=== PATIENT | female | born 1950 | race Hispanic/Latino ===

== ENCOUNTER 2017-10-04 09:20 | Emergency (ER) | payer MEDICARE, BC ==
[2017-10-04 09:20] VITALS: BMI 24.1
--- NOTE | 2017-10-04 09:54 | ED PDOC ---
Arrival/HPI <Baltazar Pedraza P - Last Filed: 10/04/17 15:51> - General Historian: Patient - History of Present Illness Time/Duration: Prior to Arrival Symptom Onset: Gradual Symptom Course: Improving Quality: Other ("vibrating") Context: Exertion <Logan Pendleton - Last Filed: 10/04/17 17:55> - General Chief Complaint: Chest Pain Time Seen by Provider: 10/04/17 09:24 - History of Present Illness Narrative History of Present Illness (Text): 10/04/17 09:48 This is a 67 yo female with past medical hx of Tako Tsubo cardiomyopathy, DVT, Crohn's disease, NSTEMI presenting with chief complaint of chest pain. It is substernal in location with radiation to left shoulder. She reports it feels similar to time in 2014 when she was dx with Tako Tsubo. She says it started about 530 am when she was walking around her house doing laundry and other chores. She also had some tea with caffeine and thought it could be some reflux so she took zantac. The pain is constant, 6/10. It feels a little better now. It is not reproducible to palpation. She also measured her BP at home and saw it was very elevated so she took her toprol. Denies cough, fevers, chills, vomiting, diarrhea, syncope, other systemic sx. PMD is Dr. Ziegler in [facility]. PMH: Tako Tsubo, HTN, HLD, Crohn's, DVT, NSTEMI PSH: parathyroidectomy, bowel resection relating to Crohn's Allergies: NKDA FH: stroke, heart disease in family Home meds: zetia, spironolactone, toprol, warfarin, magnesium, folic acid, lipitor; pt was previously on remicade for Crohn's (stopped 2013) Social hx: former smoker, quit in 1991. social drinker. denies drug use. Born in . lives at home with 10/04/17 10:00 10/04/17 10:16 (Logan Pendleton) Past Medical History - Provider Review Nursing Documentation Reviewed: Yes - Infectious Disease Hx of Infectious Diseases: None - Tetanus Immunization Tetanus Immunization: Unknown - Reproductive Menopause: Yes - Cardiac Hx Cardiac Disorders: Yes Hx Hypertension: Yes Other/Comment: irregular EKG - Hematological/Oncological Other/Comment: blood clots - Musculoskeletal/Rheumatological Hx Falls: No - Gastrointestinal Hx Crohn's Disease: Yes - Psychiatric Hx Substance Use: No - Surgical History Hx Thyroidectomy: Yes (partial) Other/Comment: Bowel resection - Anesthesia Hx Anesthesia: Yes Hx Anesthesia Reactions: No <Logan Pendleton - Last Filed: 10/04/17 17:55> Family/Social History - Physician Review Nursing Documentation Reviewed: Yes Family/Social History: CVA/TIA, CAD/MA Smoking Status: Former Smoker Hx Alcohol Use: Yes Hx Substance Use: No Hx Substance Use Treatment: No <Logan Pendleton - Last Filed: 10/04/17 17:55> Allergies/Home Meds <Baltazar Pedraza - Last Filed: 10/04/17 15:51> <Logan Pendleton - Last Filed: 10/04/17 17:55> Allergies/Adverse Reactions: Allergies No Known Allergies Allergy (Verified 10/04/17 10:04) Home Medications: Home Meds Medication Instructions Recorded Confirmed Atorvastatin Calcium [Lipitor] 60 mg PO DAILY 09/23/15 10/04/17 Ezetimibe [Zetia] 1 tab PO DAILY 09/23/15 10/04/17 Metoprolol Succinate [Toprol XL] 1 tab PO DAILY 09/23/15 10/04/17 Spironolactone [Aldactone] 1 tab PO DAILY 09/23/15 10/04/17 Warfarin [Coumadin] 2.5 mg PO DAILY 09/23/15 10/04/17 Review of Systems - Review of Systems Constitutional: absent: Weight Change, Fevers Eyes: absent: Vision Changes, Photophobia ENT: absent: Hearing Changes, Tinnitus Respiratory: absent: Cough Cardiovascular: Chest Pain. absent: Palpitations Gastrointestinal: absent: Abdominal Pain, Stool Changes Genitourinary Female: absent: Dysuria, Frequency Musculoskeletal: absent: Arthralgias, Back Pain Skin: absent: Rash, Pruritis Neurological: absent: Headache, Dizziness Endocrine: absent: Diaphoresis, Polyuria Hemo/Lymphatic: absent: Adenopathy, Easy Bleeding Psychiatric: absent: Anxiety, Depression <Logan Pendleton - Last Filed: 10/04/17 17:55> Physical Exam Vital Signs Reviewed: Yes Mental Status: Positive for: Alert and Oriented X 3 - Systems Exam Head: Present: Atraumatic, Normocephalic Pupils: Present: PERRL Extroacular Muscles: Present: EOMI Neck: Present: Normal Range of Motion. No: JVD Respiratory/Chest: Present: Rales (minimal crackles on the right ). No: Clear to Auscultation, Respiratory Distress Cardiovascular: Present: Normal S1, S2 Abdomen: Present: Normal Bowel Sounds. No: Tenderness, Distention, Peritoneal Signs Upper Extremity: Present: Normal Inspection. No: Cyanosis, Edema Lower Extremity: Present: Normal Inspection. No: Edema Neurological: Present: CN II-XII Intact, Speech Normal Skin: Present: Warm, Dry Psychiatric: Present: Alert, Oriented x 3, Normal Insight, Normal Concentration <Logan Pendleton - Last Filed: 10/04/17 17:55> Vital Signs Temp Pulse Resp BP Pulse Ox 10/04/17 15:53 68 18 163/84 H 98 10/04/17 13:00 62 18 161/88 H 100 10/04/17 11:20 98.5 F 58 L 19 160/88 H 100 10/04/17 09:31 97.7 F 62 19 185/94 H 100 Medical Decision Making <Baltazar Pedraza - Last Filed: 10/04/17 15:51> <Logan Pendleton - Last Filed: 10/04/17 17:55> ED Course and Treatment: ecg- nsr 68, twi in V1-4 w tw abn in V5-6 disc results w pt- she wishes for transfer to [place] as her card is there 12pm disc w Dr Ziegler, the pts restaurant manager at [facility]- accepts transfer (Baltazar Pedraza) - Lab Interpretations Lab Results: 10/04/17 10:40 10/04/17 10:40 Lab Results 10/04/17 10:40: Sodium 141, Potassium 4.6, Chloride 108 H, Carbon Dioxide 22, Anion Gap 16, BUN 16, Creatinine 1.0, Est GFR ( Amer) > 60, Est GFR (Non- Af Amer) 55, Random Glucose 131 H, Calcium 9.9, Total Bilirubin 1.3, AST 48 H, ALT 42, Alkaline Phosphatase 133 H, Troponin I 0.36 H* D, Total Protein 7.0, Albumin 4.1, Globulin 2.9, Albumin/Globulin Ratio 1.4 10/04/17 10:40: WBC 6.6, RBC 4.41, Hgb 13.9, Hct 42.2, MCV 95.7, MCH 31.5, MCHC 32.9, RDW 13.9, Plt Count 226, MPV 9.9, Gran % 72.0 H, Lymph % (Auto) 18.6 L, [place] % (Auto) 6.9 H, Eos % (Auto) 2.0, Baso % (Auto) 0.5, Gran # 4.77, Lymph # 1.2, [place] # 0.5, Eos # 0.1, Baso # 0.03 10/04/17 09:58: PT 19.0 H, INR 1.71 H, D-Dimer, Quantitative < 200 - RAD Interpretation Radiology Orders: 10/04/17 09:41 CHEST PORTABLE [RAD] Stat - Medication Orders Current Medication Orders: Discontinued Medications Aspirin (Aspirin Chewable) 324 mg PO STAT STA Stop: 10/04/17 09:43 Last Admin: 10/04/17 09:56 Dose: 324 mg Disposition/Present on Arrival - Present on Arrival History of DVT/PE: Yes - Disposition Have Diagnosis and Disposition been Completed?: Yes Disposition Time: 15:52 <Baltazar Pedraza - Last Filed: 10/04/17 15:51> - Present on Arrival Any Indicators Present on Arrival: Yes History of DVT/PE: Yes History of Uncontrolled Diabetes: No Urinary Catheter: No History of Decub. Ulcer: No History Surgical Site Infection Following: None - Disposition Have Diagnosis and Disposition been Completed?: Yes Patient Plan: Transfer To <Logan Pendleton - Last Filed: 10/04/17 17:55> - Disposition Diagnosis: NSTEMI (non-ST elevated myocardial infarction) Disposition: Trans to Other Acute Care Hosp Condition: STABLE Forms: Sincerely (Divehi)
--- NOTE | 2017-10-04 10:14 | RAD ---
HISTORY: cp COMPARISON: 09/23/2015 FINDINGS: LUNGS: No infiltrate. 12 mm lobulated nodule mid right lung. Recommend further evaluation with computed tomography of the chest. No other pulmonary mass identified. PLEURA: No significant pleural effusion identified, no pneumothorax apparent. CARDIOVASCULAR: Normal. OSSEOUS STRUCTURES: No significant abnormalities. VISUALIZED UPPER ABDOMEN: Normal. OTHER FINDINGS: None. IMPRESSION: 12 mm lobulated nodular opacity in mid right lung. Recommend further evaluation with computed tomography. No acute infiltrate.
[2017-10-04 10:25] LABS: INR 1.71 (0.93-1.08)
[2017-10-04 10:29] LABS: D DIMER < 200 ng/mL (0-243)
[2017-10-04 10:59] LABS: BASO # 0.03 K/mm3 (0.0-2.0); BASO % 0.5 % (0.0-3.0); EOS # 0.1 (0.0-0.7); GRAN # 4.77 (1.4-6.5); HEMATOCRIT 42.2 % (36.0-48.0); LYMPH # 1.2 (1.2-3.4); LYMPH % 18.6 % (22.0-35.0); MEAN CELL VOLUME 95.7 fl (80.0-105.0); MEAN CORPUSCULAR HEMOGLOBIN 31.5 pg (25.0-35.0); MEAN CORPUSCULAR HGB CONC 32.9 g/dl (31.0-37.0); MEAN PLATELET VOLUME 9.9 fl (7.0-11.0); MONO # 0.5 (0.1-0.6); MONO % 6.9 % (1.0-6.0); RED CELL DISTRIBUTION WIDTH 13.9 % (11.5-14.5); WHITE BLOOD COUNT 6.6 10^3/ul (4.5-11.0)
[2017-10-04 11:16] LABS: ALB/GLOB RATIO 1.4 (1.1-1.8); ALKALINE PHOSPHATASE 133 U/L (38-126); ALT/SGPT 42 U/L (7-56); AST/SGOT 48 U/L (14-36); BILIRUBIN,TOTAL 1.3 mg/dL (0.2-1.3); BLOOD UREA NITROGEN 16 mg/dL (7-21); CALCIUM 9.9 mg/dL (8.4-10.5); CARBON DIOXIDE 22 mmol/L (21-33); CHLORIDE 108 mmol/L (98-107); GFR AFRICAN-AMERICAN > 60; GLUCOSE,RANDOM 131 mg/dL (70-110); POTASSIUM 4.6 mmol/L (3.6-5.0); SODIUM 141 mmol/L (132-148)
[2017-10-04 11:44] LABS: TROPONIN I 0.36 ng/mL
[2017-10-04 11:58] VITALS: TEMP 98.5
--- NOTE | 2017-10-04 12:33 | CARD ---
APPROVED REPORT EKG Measurement Heart [id number] <Conclusion> Normal sinus rhythm ST & T wave abnormality, consider anterolateral ischemia Abnormal ECG
[2017-10-04 15:54] VITALS: RESP 18
[2017-10-04 15:55] VITALS: BP 163/84; PULSE 68; O2SAT 98
== END 2017-10-04 16:15 | disposition short-term general hospital (02) ==
LOC: ED 09:20
DX: I21.4 Non-ST elevation (NSTEMI) myocardial infarction (principal); I10 Essential (primary) hypertension; E78.5 Hyperlipidemia, unspecified; Z87.891 Personal history of nicotine dependence

== ENCOUNTER 2018-02-12 22:28 | Emergency (ER) | payer MEDICARE, BC ==
[2018-02-12 22:40] VITALS: BMI 22.1
[2018-02-12 22:52] VITALS: TEMP 97.7
--- NOTE | 2018-02-12 22:56 | ED PDOC ---
Arrival/HPI - General Time Seen by Provider: 02/12/18 22:38 Historian: Patient, Spouse - History of Present Illness Narrative History of Present Illness (Text): you were treated in the ED today for hx of cholesterol, hypertension, crohn's, on coumadin for thrombosis, and having palpitations and admitted to missing 3 days of toporol due to family issues and which resumed today otherwise without any nausea/vomiting/headache/dizziness/difficulty breathing/chest pain/abdomen pain/numbness/tingling/loss of limb function/pain with urination/thoughts to harm yourself or others or hallucinations. Time/Duration: 4-6 hours Symptom Onset: Gradual Symptom Course: Unchanged Activities at Onset: Other (no pain) Context: Sitting Past Medical History - Provider Review Nursing Documentation Reviewed: Yes - Travel History Have you recently traveled outside [place] w/in the past 3 mons?: No - Infectious Disease Hx of Infectious Diseases: None - Tetanus Immunization Tetanus Immunization: Unknown - Cardiac Hx Cardiac Disorders: Yes Hx Hypertension: Yes Other/Comment: irregular EKG - Hematological/Oncological Other/Comment: blood clots - Musculoskeletal/Rheumatological Hx Falls: No - Gastrointestinal Hx Crohn's Disease: Yes - Psychiatric Hx Substance Use: No - Surgical History Hx Thyroidectomy: Yes (partial) Other/Comment: Bowel resection - Anesthesia Hx Anesthesia: Yes Hx Anesthesia Reactions: No Family/Social History - Physician Review Nursing Documentation Reviewed: Yes Family/Social History: No Known Family HX Smoking Status: Former Smoker Hx Alcohol Use: Yes Hx Substance Use: No Hx Substance Use Treatment: No Allergies/Home Meds Allergies/Adverse Reactions: Allergies No Known Allergies Allergy (Verified 02/12/18 22:40) Home Medications: Home Meds Medication Instructions Recorded Confirmed Atorvastatin Calcium [Lipitor] 60 mg PO DAILY 09/23/15 02/12/18 Ezetimibe [Zetia] 1 tab PO DAILY 09/23/15 02/12/18 Metoprolol Succinate [Toprol XL] 1 tab PO DAILY 09/23/15 02/12/18 Spironolactone [Aldactone] 1 tab PO DAILY 09/23/15 02/12/18 Warfarin [Coumadin] 2 mg PO DAILY 09/23/15 02/12/18 Clopidogrel [Plavix] 75 mg PO DAILY 02/12/18 02/12/18 Review of Systems - Review of Systems Constitutional: Normal Eyes: Normal ENT: Normal Respiratory: Normal Cardiovascular: Palpitations Gastrointestinal: Normal Genitourinary Female: Normal Musculoskeletal: Normal Skin: Normal Neurological: Normal Endocrine: Normal Hemo/Lymphatic: Normal Psychiatric: Normal Physical Exam Vital Signs Reviewed: Yes Vital Signs Temp Pulse Resp BP Pulse Ox 02/12/18 23:15 55 L 12 160/87 H 97 02/12/18 22:48 97.7 F 62 18 186/93 H 100 Temperature: Afebrile Blood Pressure: Hypertensive Pulse: Regular Respiratory Rate: Normal Appearance: Positive for: Well-Appearing, Non-Toxic, Comfortable Pain Distress: None Mental Status: Positive for: Alert and Oriented X 3 - Systems Exam Head: Present: Atraumatic, Normocephalic Pupils: Present: PERRL Extroacular Muscles: Present: EOMI Conjunctiva: Present: Normal Ears: Present: Normal Mouth: Present: Moist Mucous Membranes Pharnyx: Present: Normal Nose (External): Present: Atraumatic Nose (Internal): Present: Normal Inspection Neck: Present: Normal Range of Motion Respiratory/Chest: Present: Clear to Auscultation, Good Air Exchange Cardiovascular: Present: Regular Rate and Rhythm Abdomen: No: Tenderness, Distention, Normal Bowel Sounds, Peritoneal Signs, Rebound, Guarding, McBurney's Point Tender, Rovsing's Sign Present, Hernias, Feeding Tubes, Ostomy Tubes, Mass/Organomegaly, Scars, Other Back: Present: Normal Inspection Upper Extremity: Present: Normal Inspection Lower Extremity: Present: Normal Inspection Neurological: Present: GCS=15, CN II-XII Intact, Speech Normal, Motor Func Grossly Intact Skin: Present: Warm, Normal Color Psychiatric: Present: Alert, Oriented x 3, Normal Insight, Normal Concentration Medical Decision Making ED Course and Treatment: you were treated in the ED today for hx of cholesterol, hypertension, crohn's, on coumadin for thrombosis, and having palpitations and admitted to missing 3 days of toporol due to family issues and which resumed today otherwise without any nausea/vomiting/headache/dizziness/difficulty breathing/chest pain/abdomen pain/numbness/tingling/loss of limb function/pain with urination/thoughts to harm yourself or others or hallucinations. You were otherwise breathing easily, pink moist lips, smiling and talking with your , good strength/sensation , alert/oriented, walking easily, clear lungs, no abdomen tenderness, no fever temp 97.7, stable heart rate 62, stable breathing rate 18, excellent oxygen level 100% room air, elevated blood pressure 186/93 which we recommend repeat in 2-3 days primary care office to determine further treatment, you have blood tests no infection count 7, stable blood level hemoglobin 15/platelets 298, stable chemistry, anion gap elevated 21, liver AST 50, Liver Alklaline Phosphatase 131 elevated, heart blood test negative, INR 2.23, ECG sinus rhythm , valium, intravenous, done in the ED with improvement, counselled to stay in the hospital for further observation/care but you refused and cautioned for complications/ but you stated you feel anxiety from family loss but otherwise you have no thoughts to harm yourself and others or hallucinations and will followup with primary care/cardiology tomorrow and wanted to go home with . 1. Recommend continue your home medications. 2. Recommend follow- up primary care tomorrow, repeat lab tests anion gap to ensure improvement, referral to cardiology to review your symptoms, referral to gastroenterology clinic for mildly elevated liver test AST/alkaline phosphatase to ensure no complications. 2. If any worsening pain, fever, chills, nausea, vomiting, difficulty breathing, numbness, loss of limb function, pain with urination or any medical condition then return to the ED. Reassessment Condition: Re-examined, Improved - Lab Interpretations Lab Results: 02/12/18 22:56 02/12/18 22:56 Lab Results 02/12/18 22:56: Sodium 142, Potassium 3.6, Chloride 103, Carbon Dioxide 21, Anion Gap 21 H, BUN 12, Creatinine 1.0, Est GFR ( Amer) > 60, Est GFR ( Non-Af Amer) 55, Random Glucose 127 H, Calcium 9.9, Magnesium 1.7, Total Bilirubin 0.9, AST 50 H, ALT 37, Alkaline Phosphatase 131 H, Lactate Dehydrogenase 514, Total Creatine Kinase 97, Troponin I < 0.01 D, Total Protein 8.1, Albumin 4.9 H, Globulin 3.2, Albumin/Globulin Ratio 1.6 02/12/18 22:56: PT 25.8 H, INR 2.23 H, APTT 35.8 02/12/18 22:56: WBC 7.1, RBC 4.78, Hgb 15.1, Hct 44.9, MCV 93.9, MCH 31.6, MCHC 33.6, RDW 13.9, Plt Count 298, MPV 9.7, Gran % 57.2, Lymph % (Auto) 32.1, [place] % (Auto) 7.0 H, Eos % (Auto) 3.1, Baso % (Auto) 0.6, Gran # 4.04, Lymph # (Auto ) 2.3, [place] # (Auto) 0.5, Eos # (Auto) 0.2, Baso # (Auto) 0.04 I have reviewed the lab results: Yes - EKG Interpretation Interpreted by ED Physician: Yes (yunier NARVAEZ) Type: 12 lead EKG Comparison: Similar to previous EKG (10/04/17) - Medication Orders Current Medication Orders: Sodium Chloride (Sodium Chloride 0.9%) 1,000 mls @ 999 mls/hr IV .Q1H1M STA Stop: 02/13/18 01:19 Disposition/Present on Arrival - Present on Arrival Any Indicators Present on Arrival: No History of DVT/PE: Yes History of Uncontrolled Diabetes: No Urinary Catheter: No History Surgical Site Infection Following: None - Disposition Have Diagnosis and Disposition been Completed?: Yes Diagnosis: Palpitations Disposition: AGAINST MEDICAL ADVICE Disposition Time: 00:43 Patient Plan: Discharge Condition: IMPROVED Discharge Instructions (ExitCare): Palpitations (DC) Additional Instructions: you were treated in the ED today for hx of cholesterol, hypertension, crohn's, on coumadin for thrombosis, and having palpitations and admitted to missing 3 days of toporol due to family issues and which resumed today otherwise without any nausea/vomiting/headache/dizziness/difficulty breathing/chest pain/abdomen pain/numbness/tingling/loss of limb function/pain with urination/thoughts to harm yourself or others or hallucinations. You were otherwise breathing easily, pink moist lips, smiling and talking with your , good strength/sensation , alert/oriented, walking easily, clear lungs, no abdomen tenderness, no fever temp 97.7, stable heart rate 62, stable breathing rate 18, excellent oxygen level 100% room air, elevated blood pressure 186/93 which we recommend repeat in 2-3 days primary care office to determine further treatment, you have blood tests no infection count 7, stable blood level hemoglobin 15/platelets 298, stable chemistry, anion gap elevated 21, liver AST 50, Liver Alklaline Phosphatase 131 elevated, heart blood test negative, INR 2.23, ECG sinus rhythm , valium, intravenous, done in the ED with improvement, counselled to stay in the hospital for further observation/care but you refused and cautioned for complications/ but you stated you feel anxiety from family loss but otherwise you have no thoughts to harm yourself and others or hallucinations and will followup with primary care/cardiology tomorrow and wanted to go home with . 1. Recommend continue your home medications. 2. Recommend follow- up primary care tomorrow, repeat lab tests anion gap to ensure improvement, referral to cardiology to review your symptoms, referral to gastroenterology clinic for mildly elevated liver test AST/alkaline phosphatase to ensure no complications. 2. If any worsening pain, fever, chills, nausea, vomiting, difficulty breathing, numbness, loss of limb function, pain with urination or any medical condition then return to the ED. Referrals: Maliha Coelho, [Primary Care Provider] - Follow up with primary
[2018-02-12 23:06] LABS: BASO # 0.04 K/mm3 (0.0-2.0); BASO % 0.6 % (0.0-3.0); EOS # 0.2 (0.0-0.7); EOS % 3.1 % (1.5-5.0); GRAN # 4.04 (1.4-6.5); GRAN % 57.2 % (50.0-68.0); HEMOGLOBIN 15.1 g/dL (12.0-16.0); LYMPH # 2.3 (1.2-3.4); LYMPH % 32.1 % (22.0-35.0); MEAN CELL VOLUME 93.9 fl (80.0-105.0); MEAN CORPUSCULAR HEMOGLOBIN 31.6 pg (25.0-35.0); MEAN CORPUSCULAR HGB CONC 33.6 g/dl (31.0-37.0); MEAN PLATELET VOLUME 9.7 fl (7.0-11.0); MONO # 0.5 (0.1-0.6); RBC 4.78 10^6/uL (3.5-6.1); RED CELL DISTRIBUTION WIDTH 13.9 % (11.5-14.5); WHITE BLOOD COUNT 7.1 10^3/ul (4.5-11.0)
[2018-02-12 23:15] LABS: ALB/GLOB RATIO 1.6 (1.1-1.8); ALBUMIN 4.9 g/dL (3.0-4.8); CALCIUM 9.9 mg/dL (8.4-10.5); GFR AFRICAN-AMERICAN > 60; GFR NON-AFRICAN AMERICAN 55
[2018-02-12 23:19] LABS: ALT/SGPT 37 U/L (7-56); AST/SGOT 50 U/L (14-36); BLOOD UREA NITROGEN 12 mg/dL (7-21); PROTHROMBIN TIME 25.8 SECONDS (9.4-12.5)
[2018-02-12 23:20] LABS: INR 2.23 (0.93-1.08); PARTIAL THROMBOPLASTIN TIME 35.8 Seconds (25.1-36.5)
[2018-02-12 23:25] LABS: TROPONIN I < 0.01 ng/mL
[2018-02-13] MEDS ORDERED: Sodium Chloride 0.9% 1,000 ML IV STA (00:19)
[2018-02-13 00:31] VITALS: BP 160/87; PULSE 55; RESP 12; O2SAT 97
--- NOTE | 2018-02-13 09:17 | CARD ---
APPROVED REPORT EKG Measurement Heart [id number] <Conclusion> Sinus rhythm with premature supraventricular complexes NSSTW changes T wave inversions V 2 - 4 seen on ECG 10/04/17 are now more shalllow to upright.
== END 2018-02-13 01:55 | disposition left against medical advice (07) ==
LOC: ED 22:28
DX: R00.2 Palpitations (principal); I10 Essential (primary) hypertension; Z87.891 Personal history of nicotine dependence; Z79.01 Long term (current) use of anticoagulants
CPT/HCPCS: 80053; 82550; 83615; 83735; 84484; 85025; 85610; 85730; 93005; 99283; J7040